=== PATIENT | male | born 1975 | race Caucasian/White ===

== ENCOUNTER → 2017-11-08 15:31 | Outpatient (CLI) | payer OTHER, SELFPAY ==
[2017-11-08 15:52] LABS: Basophils # 0.1 K/mm3 (0-0.2); Basophils % 0.8 % (0.1-2.0); Eosinophils # 0.3 K/mm3 (0.0-0.4); Eosinophils % 4.1 % (0.1-12.0); Hematocrit 52.2 % (42.0-52.0); Lymphocytes # 2.5 K/mm3 (0.7-4.5); Lymphocytes % 34.7 K/mm3 (10-50); Mean Corpuscular HGB Conc 32.6 g/dL (31.8-35.4); Mean Corpuscular Hemoglobin 28.3 pg (27.0-31.2); Mean Corpuscular Volume 86.8 fl (80-94); Mean Platelet Volume 7.2 fl (7.4-10.4); Monocytes # 0.5 K/mm3 (0.1-1.0); Monocytes % 6.2 % (1.7-9.3); Neutrophils # 3.9 K/mm3 (1.8-7.8); Neutrophils % 54.2 % (37.0-80.0); Platelet Count 345 K/mm3 (142-424); Red Blood Count 6.02 M/mm3 (4.60-6.20); White Blood Count 7.2 K/mm3 (4.8-10.8)
[2017-11-08 16:13] LABS: Alanine Aminotransferase 54 U/L (12-78); Albumin Level 4.4 gm/dL (3.4-5.0); Albumin/Globulin Ratio 1.1 (1.1-1.8); Alkaline Phosphatase 101 U/L (46-116); Bilirubin,Total 0.3 mg/dL (0.2-1.0); Blood Urea Nitrogen 13 mg/dL (7-18); Calcium 9.7 mg/dL (8.5-10.1); Carbon Dioxide 31 mmol/L (21.0-32.0); Chloride 102 mmol/L (98-107); Creatinine,Serum 1.13 mg/dL (0.70-1.30); Estimated Glomerular Filt Rate 70 ml/min (>60); GFR (African American) 85 ML/MIN (>60); Globulin 4.1 gm/dl (1.3-3.2); Glucose 102 mg/dL (74-106); Sodium 141 mmol/L (136-145); Thyroid Stimulating Hormone 2.11 uIU/ml (0.358-3.740); Total Protein,Serum 8.5 gm/dL (6.4-8.2)
[2017-11-08 16:19] LABS: Aspartate Amino Transferase 21 U/L (15-37)
[2017-11-10 10:27] LABS: Vitamin B12 1169 pg/mL (232-1245)
[2017-11-12 14:52] LABS: Testosterone,Free 10.3 pg/mL (6.8-21.5)
[2017-11-12 15:32] LABS: Testosterone, Total, LC/MS 569.8 ng/dL (264.0-916.0)
== END ==
PROVIDERS: Visit Provider Internal Medicine Adolescent Medicine
DX: E29.1 Testicular hypofunction (principal)
CPT/HCPCS: 36415; 80053; 82607; 82652; 84402; 84443; 85025

== ENCOUNTER → 2018-01-31 12:45 | Outpatient (CLI) | payer OTHER, SELFPAY ==
[2018-01-31 13:04] LABS: Basophils # 0.1 K/mm3 (0-0.2); Eosinophils # 0.3 K/mm3 (0.0-0.4); Eosinophils % 3.5 % (0.1-12.0); Hematocrit 53.6 % (42.0-52.0); Hemoglobin 16.9 g/dL (14.1-18.0); Lymphocytes # 2.1 K/mm3 (0.7-4.5); Lymphocytes % 22.3 K/mm3 (10-50); Mean Corpuscular HGB Conc 31.5 g/dL (31.8-35.4); Mean Corpuscular Hemoglobin 27.6 pg (27.0-31.2); Mean Corpuscular Volume 87.7 fl (80-94); Mean Platelet Volume 7.6 fl (7.4-10.4); Monocytes # 0.5 K/mm3 (0.1-1.0); Monocytes % 4.9 % (1.7-9.3); Neutrophils # 6.4 K/mm3 (1.8-7.8); Neutrophils % 68.4 % (37.0-80.0); Platelet Count 350 K/mm3 (142-424); Red Blood Count 6.11 M/mm3 (4.60-6.20); Red Cell Distribution Width 12.4 % (11.5-17.5); White Blood Count 9.3 K/mm3 (4.8-10.8)
[2018-01-31 15:08] LABS: Alanine Aminotransferase 43 U/L (12-78); Albumin Level 4.2 gm/dL (3.4-5.0); Albumin/Globulin Ratio 1.3 (1.1-1.8); Alkaline Phosphatase 105 U/L (46-116); Anion Gap 12.4 mEq/L (5-15); Aspartate Amino Transferase 18 U/L (15-37); Bilirubin,Total 0.6 mg/dL (0.2-1.0); Blood Urea Nitrogen 12 mg/dL (7-18); Calcium 9.3 mg/dL (8.5-10.1); Carbon Dioxide 29 mmol/L (21.0-32.0); Chloride 101 mmol/L (98-107); Creatinine,Serum 1.14 mg/dL (0.70-1.30); Estimated Glomerular Filt Rate 70 ml/min (>60); Free Thyroxine Index 2.8 ug/dL (5.93-13.13); GFR (African American) 84 ML/MIN (>60); Globulin 3.3 gm/dl (1.3-3.2); Glucose 122 mg/dL (74-106); Potassium 4.4 mmoL/L (3.5-5.1); Sodium 138 mmol/L (136-145); T4 (Thyroxine) 7.9 ug/dl (4.7-13.3); Thyroid Stimulating Hormone 1.64 uIU/ml (0.358-3.740); Total Protein,Serum 7.5 gm/dL (6.4-8.2); Triiodothryronine (T3) Uptake 35 % (31-39)
[2018-02-01 10:07] LABS: Vitamin D 25 Hydroxy 85.7 ng/mL (30.0-100.0)
[2018-02-01 14:39] LABS: Vitamin B12 1178 pg/mL (232-1245)
[2018-02-03 06:27] LABS: Testosterone, Total, LC/MS 689.7 ng/dL (264.0-916.0); Testosterone,Free 11.8 pg/mL (6.8-21.5)
== END ==
PROVIDERS: Visit Provider Internal Medicine Adolescent Medicine
DX: E29.1 Testicular hypofunction (principal); E55.9 Vitamin D deficiency, unspecified
CPT/HCPCS: 36415; 80053; 82607; 82652; 83735; 84402; 84436; 84443; 84479; 85025

== ENCOUNTER → 2018-07-18 16:29 | Outpatient (CLI) | payer OTHER, SELFPAY ==
--- NOTE | 2018-07-18 16:40 | MR_ITS ---
MR lumbar spine wo/w con, MR 3-d myelogram/MRCP Ordering Physician: Guy Beckford MD Patient Age: 42 years: Male HISTORY: ITS.REASON: ACUTE LOW BACK PAIN, UNSPECIFIED BACK PAIN LATERALLY Sudden onset of pain right leg a few days ago. TECHNIQUE: Pre and postcontrast imaging lumbar spine. On 1.5T Siemens wide bore MRI. Precontrast images include Sagittal STIR, T1, T2, axial T1 and T2. 3-D MR myelogram image set obtained & performed on MRI workstation. Additional sagittal thin section T2 weighted dataset obtained from this latter acquisition as well (---76 CPT) . Postcontrast T1 imaging following , ProHance 17 mL performed sagittal and axial plane COMPARISON :No FINDINGS L5/S1. Disc space narrowed and loss of hydration with large disc herniation complex right paracentral . Disc right paracentral disc protrusion/ herniation, with associated large extruded free disc fragment extending cephalad from the L5/S1 disc level, extending along the posterior right aspect of L5 vertebral body.. This large disc herniation complex severely effaces the thecal sac on the right, displacing nerve roots nerve roots and yielding spinal stenosis at this level.. The fragment extends towards the right recess just to the entrance to right foramen.... Postcontrast images show no abnormal enhancement of this epidural mass-thus supporting it is a extruded disc fragment This large extruded disc fragment measures nearly 20 mm length X up to 12 mm AP & over 12 mm transverse.. Timely neurosurgical consultation warranted/required L4/5. Disc intact. Neural foramen widely patent L3/4, L2/3 L1/2 and T12/L1 disc intact unremarkable. Benign hemangioma right lateral aspect of L4 vertebral body 15 mm size. Incidentally noted.. IMPRESSION...... L5/S1. Very large disc herniation complex-. Severely compresses thecal sac on the right. Large extruded free disc fragment extends cephalad from the L5/S1 disc & reside posterior L5 vertebral body; where it yields severe indentation upon the right aspect of thecal sac. Timely Neurosurgical consult requested
== END ==
PROVIDERS: PCP Internal Medicine Adolescent Medicine; Visit Provider Internal Medicine Adolescent Medicine
DX: M54.5 Low back pain (principal)
CPT/HCPCS: 72158; 76376; A9576

== ENCOUNTER → 2018-11-03 12:04 | Outpatient (CLI) | payer OTHER, SELFPAY ==
[2018-11-03 12:06] LABS: Adenovirus F 40/41, stool Not Detected (NotDetected); Astrovirus Not Detected (NotDetected); Campylobacter Not Detected (NotDetected); Clostridium Difficile A/B, PCR Not Detected (NotDetected); Cyclospora Cayetanesis Not Detected (NotDetected); Entamoeba histolytica Not Detected (NotDetected); Enteroaggregative E coli Not Detected (NotDetected); Enteropathogenic E coli Not Detected (NotDetected); Enterotoxigenic E coli Not Detected (NotDetected); Giardia lamblia Not Detected (NotDetected); Norovirus Not Detected (NotDetected); Plesimonas Shigalloides, PCR Not Detected (NotDetected); Rotavirus A Not Detected (NotDetected); Salmonella, PCR Not Detected (NotDetected); Sapovirus Not Detected (NotDetected); Shiga-like toxin E coli Not Detected (NotDetected); Shigella Enterovasive E coli Not Detected (NotDetected); Vibrio Cholerae Not Detected (NotDetected); Vibrio, PCR Not Detected (NotDetected); Yersinia Entercolitica, PCR Not Detected (NotDetected)
[2018-11-03 12:14] LABS: Basophils % 0.6 % (0.1-2.0); Eosinophils % 0.4 % (0.1-12.0); Hematocrit 53.4 % (42.0-52.0); Hemoglobin 17.8 g/dL (14.1-18.0); Lymphocytes # 1.2 K/mm3 (0.7-4.5); Lymphocytes % 19.7 % (10-50); Mean Corpuscular HGB Conc 33.3 g/dL (31.8-35.4); Mean Corpuscular Hemoglobin 28.8 pg (27.0-31.2); Mean Corpuscular Volume 86.6 fl (80-94); Mean Platelet Volume 7.7 fl (7.4-10.4); Monocytes # 0.3 K/mm3 (0.1-1.0); Monocytes % 4.4 % (1.7-9.3); Neutrophils # 4.4 K/mm3 (1.8-7.8); Platelet Count 232 K/mm3 (142-424); Red Blood Count 6.16 M/mm3 (4.60-6.20); Red Cell Distribution Width 12.8 % (11.5-17.5); White Blood Count 5.9 K/mm3 (4.8-10.8)
[2018-11-03 12:24] LABS: Alanine Aminotransferase 93 U/L (12-78); Albumin Level 3.9 gm/dL (3.4-5.0); Alkaline Phosphatase 98 U/L (46-116); Aspartate Amino Transferase 27 U/L (15-37); Bilirubin,Total 0.2 mg/dL (0.2-1.0); Blood Urea Nitrogen 11 mg/dL (7-18); Calcium 9.2 mg/dL (8.5-10.1); Carbon Dioxide 28 mmol/L (21.0-32.0); Chloride 100 mmol/L (98-107); Creatinine,Serum 1.13 mg/dL (0.70-1.30); Estimated Glomerular Filt Rate 70 ml/min (>60); GFR (African American) 85 ML/MIN (>60); Globulin 4.1 gm/dl (1.3-3.2); Glucose 106 mg/dL (74-106); Sodium 137 mmol/L (136-145)
[2018-11-03 14:43] LABS: Cryptosporidium Detected (NotDetected)
== END ==
PROVIDERS: Visit Provider Internal Medicine Adolescent Medicine
DX: K52.9 Noninfective gastroenteritis and colitis, unspecified (principal)
CPT/HCPCS: 36415; 80053; 85025; 87507

== ENCOUNTER → 2019-09-05 08:59 | Outpatient (CLI) | payer OTHER, SELFPAY ==
[2019-09-05 10:57] VITALS: BMI 24.3
== END ==
PROVIDERS: PCP Internal Medicine Adolescent Medicine; Visit Provider Nurse Practitioner
DX: J06.9 Acute upper respiratory infection, unspecified (principal)

== ENCOUNTER 2019-12-14 08:18 | Day surgery (SDC) | payer OTHER, SELFPAY ==
[2019-12-13 12:49] VITALS: BMI 22.8
[2019-12-14 08:28] VITALS: BP 132/80; PULSE 88; RESP 20; TEMP 36.6; O2SAT 98
--- NOTE | 2019-12-14 09:32 | [facility].OPNOTE ---
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 His mid back was prepped and draped in a sterile fashion. After infiltration of local anesthetic an elliptical incision was made around the adjacent lesions. The entire excision was 5.5 cm. The underlying subcutaneous tissue was sharply dissected with scalpel. The lesion was marked for margin (short superior/long left lateral) and passed off for pathologic evaluation. Electrocautery was utilized to achieve hemostasis. The skin was reapproximated with interrupted 4-0 nylon. Dressings were applied and the patient was discharged in good condition. Condition: stable Disposition: no change Specimens:: Mid back skin neoplasms Complications:: No immediate
== END 2019-12-14 09:36 | disposition home or self-care (01) ==
LOC: OUTP 08:20
PROVIDERS: PCP Internal Medicine Adolescent Medicine; Visit Provider Surgery
PROC: (CPT 11406; principal; 2019-12-14 07:30)
DX: L57.0 Actinic keratosis (principal)
CPT/HCPCS: 11406

== ENCOUNTER → 2019-12-21 14:00 | Outpatient (CLI) | payer OTHER, SELFPAY ==
[2019-12-22 08:21] LABS: Covid-19 Nasal PCR Sendout Lex NOT DETECTED
--- NOTE | 2019-12-22 08:44 | PC.NURSE ---
0844 pt notified of NEGATIVE COVID-19 TEST TESULT
== END ==
PROVIDERS: Visit Provider Internal Medicine Adolescent Medicine
DX: Z03.818 Encounter for observation for suspected exposure to other biological agents ruled out (principal)
CPT/HCPCS: U0003

== ENCOUNTER → 2020-09-19 07:55 | Outpatient (CLI) | payer OTHER, SELFPAY ==
[2020-09-19 08:13] LABS: Basophils # 0.1 K/mm3 (0-0.2); Basophils % 1.2 % (0.1-2.0); Eosinophils # 0.4 K/mm3 (0.0-0.4); Eosinophils % 5.5 % (0.1-12.0); Hematocrit 51.8 % (42.0-52.0); Hemoglobin 17.7 g/dL (14.1-18.0); Lymphocytes % 28.4 % (10-50); Mean Corpuscular HGB Conc 34.2 g/dL (31.8-35.4); Mean Corpuscular Hemoglobin 29.7 pg (27.0-31.2); Mean Corpuscular Volume 86.6 fl (80-94); Mean Platelet Volume 7.4 fl (7.4-10.4); Monocytes # 0.4 K/mm3 (0.1-1.0); Monocytes % 5.8 % (1.7-9.3); Neutrophils # 4.1 K/mm3 (1.8-7.8); Neutrophils % 59.2 % (37.0-80.0); Platelet Count 303 K/mm3 (142-424); Red Blood Count 5.98 M/mm3 (4.60-6.20); Red Cell Distribution Width 13.1 % (11.5-17.5); White Blood Count 6.9 K/mm3 (4.8-10.8)
[2020-09-19 09:15] LABS: Alanine Aminotransferase 39 U/L (12-78); Albumin Level 4.6 g/dl (3.5-5.0); Albumin/Globulin Ratio 1.7 (1.1-1.8); Alkaline Phosphatase 75 U/L (38-126); Anion Gap 10.9 mEq/L (5-15); Aspartate Amino Transferase 28 U/L (17-59); Bilirubin,Total 0.7 mg/dl (0.2-1.3); Blood Urea Nitrogen 11 mg/dl (9-20); Calcium 9.9 mg/dl (8.4-10.2); Carbon Dioxide 31 mmol/L (22.0-30.0); Chloride 101 mmol/L (98-107); Chol/HDL Ratio 4.2 (1-3.5); Cholesterol 203 mg/dl (140-200); Estimated Glomerular Filt Rate 72 ml/min (>60); GFR (African American) 87 ML/MIN (>60); Globulin 2.7 g/dL (1.3-3.2); Glucose 95 mg/dl (74-100); HDL Cholesterol 48 mg/dl (40-60); Potassium 3.9 mmoL/L (3.5-5.1); Sodium 139 mmol/L (136-145); Total Protein,Serum 7.3 g/dl (6.3-8.2); Triglycerides 101 mg/dl (30-150); VLDL Cholesterol 20 mg/dL (0-40)
[2020-09-19 09:27] LABS: Direct LDL Cholesterol 132.33 mg/dL (100-129)
[2020-09-19 09:32] LABS: 25-OH Vitamin D, Total 28.6 ng/mL (30-100)
[2020-09-20 11:34] LABS: Testosterone,Total 240 ng/dL (264-916)
[2020-09-23 11:14] LABS: Vitamin B6 91.8 ug/L (5.3-46.7)
== END ==
PROVIDERS: Visit Provider Internal Medicine Adolescent Medicine
DX: Z00.00 Encounter for general adult medical examination without abnormal findings (principal); E29.1 Testicular hypofunction; E55.9 Vitamin D deficiency, unspecified; Z86.39 Personal history of other endocrine, nutritional and metabolic disease
CPT/HCPCS: 36415; 80053; 80061; 82306; 84207; 84403; 84443; 85025